=== PATIENT | female | born 1980 | race Two or more races ===

== ENCOUNTER 2025-01-26 05:57 | Day surgery (SDC) | payer OTHER, SELFPAY ==
[2025-01-24 11:48] VITALS: BMI 27.3
--- NOTE | 2025-01-25 09:59 | HO.ANESPROP2 ---
Documented by User: Lori Dutta NP 01/25/25 09:59 HPI - Anesthesia Eval Consult details Narrative: 44yo F for Right Wide Local Excision Giant Lipoma Right Mid Back/flank PMFSH Active Problems Active Problems: All Active Problems Lipomatosis gigantea (Acute) Past Medical History Medical History History of endometrial biopsy Dyspareunia, female Chronic tension headaches Depression Abnormal vaginal Pap smear Abnormal uterine bleeding (AUB) Nexplanon in place Family History Family History Maternal Grandmother Diabetes mellitus Mother Depression Social History Social History Alcohol intake: current Alcohol intake frequency: does not drink Patient Tobacco Use Status: Current someday Tobacco user Have you been hit, kicked, punched, or otherwise hurt by someone within the past year? If so, by whom?: No Are you DNR?: No Advance Directives: No Advance Directives Information Provided: Yes Sexual orientation: Straight/Heterosexual Gender identity: Female Meds Allergies Allergy/AdvReac Type Severity Reaction Status Date / Time No Known Allergies Allergy Verified 01/25/25 09:05 Home Medications ?Medication ?Instructions ?Recorded ?Confirmed ?Last Taken ?Type sertraline 50 mg tablet 50 mg PO QAM 01/24/25 01/24/25 01/24/25 History Exam Height,Weight and Vital Signs: Height 5 ft 3 in Weight 69.853 kg Assessment and Plan Assessment Anesthesia Assessment: Chart Reviewed Documented by User: Nayana Lomas MD 01/26/25 07:30 PMFSH Past Medical History Medical History History of endometrial biopsy Dyspareunia, female Chronic tension headaches Depression Abnormal vaginal Pap smear Abnormal uterine bleeding (AUB) Nexplanon in place Family History Family History Maternal Grandmother Diabetes mellitus Mother Depression Family history of problems with anesthesia: No Surgical History History of Problems with Anesthesia: No Social History Social History Alcohol intake: current Alcohol intake frequency: does not drink Patient Tobacco Use Status: Current someday Tobacco user Have you been hit, kicked, punched, or otherwise hurt by someone within the past year? If so, by whom?: No Are you DNR?: No Advance Directives: No Advance Directives Information Provided: Yes Sexual orientation: Straight/Heterosexual Gender identity: Female Meds Allergies Allergy/AdvReac Type Severity Reaction Status Date / Time No Known Allergies Allergy Verified 01/25/25 09:05 Home Medications ?Medication ?Instructions ?Recorded ?Confirmed ?Last Taken ?Type sertraline 50 mg tablet 50 mg PO QAM 01/24/25 01/24/25 01/24/25 History Exam Height,Weight and Vital Signs: Height 5 ft 3 in Weight 69.853 kg Vital Signs Temp Pulse Resp BP Pulse Ox O2 Del Method 01/26/25 06:14 97.6 F 78 18 112/68 98 Room Air Pertinent Lab Results Pertinent Lab Results: Lab Results 01/26/25 Range/Units 06:15 Urine Test NEGATIVE (NEGATIVE) Airway Mallampati Class: II TM Dist: >3cm Neck ROM: Full Loose/Missing/Broken Teeth: Yes (Missing 1 tooth top and bottom left. Denies broken or loose teeth) Heart: RRR Lungs: CTAB Assessment and Plan Assessment Anesthesia Assessment: Anesthesia Plan Discussed and Chart Reviewed Final Anesthetic Review Family History of Problems with Anesthesia: No History of Problems with Anesthesia: No NPO: Yes ASA Class: II Final Preanesthetic Review: No Changes in Pt Med Stat, Meds/Allgs Chart Reviewed, Consent Obtained/Reviewed and Anes Risks/Benef Reviewed Patient Risk: Low Procedure Risk: Low Assessment/Block/Sedation in SS: Assess/Block/Sedation-SS Anesthetic Plan Anesthetic Plan: TIVA Disposition: Standard PACU
--- NOTE | 2025-01-25 11:34 | P.HPSUR_ITS ---
Pre-Procedural Eval Section A - 24 Hr Update-Section A only Date of Service: 01/26/25 The patient is an INPATIENT: No Changes since office visit: No Cold of Flu in the past 2 weeks, No New Medical Problems, No Changes in Medication and No Patient answered all questions Section B - Complete if H&P > 30 days Chief Complaint: Lipomatosis, not elsewhere classified Allergies: Allergies Allergy/AdvReac Type Severity Reaction Status Date / Time No Known Allergies Allergy Verified 01/25/25 09:05 Review of Systems Sugical H&P ROS: Negative: Constitution, Cardiovascular, Respiratory, Neurological, Psychiatric, Hem-Onc, Allergic/Immunologic, Gastrointestinal, Genitourinary, Musculoskeletal, Integumentary, Endocrine and Eyes/Ears/Nos e/Throat Exam Surgical H&P Exam: Normal: HEENT, Normal: Heart, Normal: Lungs, Normal: Extremities, Normal: Abdomen, Normal: Skin and Normal: Neurological Plan I have reviewed the history and physical and performed a pertinent physical examination on my patient. No changes have occurred unless specified. Time Spent With Patient Time: Total time managing care of this patient today ____ minutes.
[2025-01-26 06:14] VITALS: BP 112/68; PULSE 78; RESP 18; TEMP 36.4; O2SAT 98; BMI 27.5
[2025-01-26 06:28] LABS: UPreg QC Valid YES; Urine Pregnancy NEGATIVE (NEGATIVE)
[2025-01-26] MEDS: Lactated Ringers 1,000 ML 100 ML IVCONT (06:44)
--- NOTE | 2025-01-26 08:05 | P.OP_ITS ---
Operative Note Operative Note Date of Service: 01/26/25 Narrative: Preoperative diagnosis: [] Large symptomatic right flank lipoma Postop diagnosis: [] The same Procedure [] wide local excision large right flank lipoma Surgeon: [] Gabriel Transfer Station Attendant: [] Jaqueline Type of Anesthesia: [] Mac surgery: [] Final specimen measured approximately 9 x 6 cm consistent with a large lipoma Findings: [] Patient with the operating room, placed up the sponges noted adequate level of mac anesthesia was induced, patient was placed left lateral decubitus position. Right flank was prepped and draped in usual sterile fashion a transverse incision over the mass in question, this was carried down through skin, subcutaneous tissue, with superior and inferior skin flaps were developed and circumferential dissection inhalation of multilobular lipoma with final dimensions as described above was other than fully performed. Specimen sent to pathology. The wound Was irrigated, secured for hemostasis, and closed using interrupted inverted dermal 3-0 Vicryl sutures followed by Steri-Strips and sterile dressings were applied. Wound was infiltrated at the beginning and at the end the case with 0.5% Marcaine/1% lidocaine Sponge, needle, instrument counts were reported to be correct. Patient tolerated the procedure well in emergency anesthesia stable condition. EBL minimal
[2025-01-26 08:24] VITALS: BP 106/50; PULSE 73; RESP 16; TEMP 36.4; O2SAT 98
[2025-01-26 08:29] VITALS: BP 136/86; PULSE 76; RESP 16; O2SAT 100
[2025-01-26 08:34] VITALS: PULSE 70; RESP 16; O2SAT 100
[2025-01-26 08:40] VITALS: BP 129/82; PULSE 71; RESP 16; O2SAT 100
[2025-01-26 08:55] VITALS: BP 123/82; PULSE 69; RESP 16; TEMP 36.3; O2SAT 100
== END 2025-01-26 09:22 | disposition home or self-care (01) ==
PROVIDERS: Nurse Practitioner; PCP Internal Medicine; Visit Provider Surgery
PROC: (CPT 21931; principal; 2025-01-26 07:30)
DX: D17.1 Benign lipomatous neoplasm of skin and subcutaneous tissue of trunk (principal); G44.209 Tension-type headache, unspecified, not intractable; N94.10 Unspecified dyspareunia; F32.A Depression, unspecified; Z79.899 Other long term (current) drug therapy; Z97.5 Presence of (intrauterine) contraceptive device; F17.210 Nicotine dependence, cigarettes, uncomplicated
CPT/HCPCS: 21931; 81025; 88304; J0131; J0690; J2003; J2250; J2405; J2704; J2795; J3010

== ENCOUNTER → 2025-01-26 05:57 | Outpatient (BNV) | payer OTHER, SELFPAY | PROVIDERS: PCP Internal Medicine; Visit Provider Surgery | DX: D17.1 Benign lipomatous neoplasm of skin and subcutaneous tissue of trunk (principal) | CPT/HCPCS: 21931 ==

== ENCOUNTER 2025-02-06 11:14 | Outpatient (AMB) | payer OTHER, SELFPAY ==
--- NOTE | 2025-02-06 11:15 | MHC.OFFVIS ---
Intake Visit Reasons: S/P WLE giant lipoma Rt. mid back/flank Intake Note: Patient here s/p wide local excision large right flank lipoma. Reports incision healing well. Patient c/o: tenderness. Denies oozing. WLE: 01-26-2025 Technology Sales Specialist Required: No Accompanied by: Self / Same As Patient Allergies No Known Allergies Allergy (Verified 02/06/25 11:16) HPI Comments Details: Patient was for follow-up status post right flank lipoma excision. She is doing well. Tolerating a diet. Number good bowel habits. Minimal incisional discomfort. Slowly increasing her activity level. Pathology is benign. [facility] Medical History (Updated 01/30/25 @ 10:55 by Brenda Vivas) History of endometrial biopsy Dyspareunia, female Chronic tension headaches Depression Abnormal vaginal Pap smear Nexplanon in place Abnormal uterine bleeding (AUB) Family History (System 01/30/25 @ 10:55 by Brenda Vivas) Maternal Grandmother Diabetes mellitus Mother Depression Social History (System 01/30/25 @ 10:55 by Brenda Vivas) Alcohol intake: current Alcohol intake frequency: does not drink Patient Tobacco Use Status: Current someday Tobacco user Sexual orientation: Straight/Heterosexual Gender identity: Female Female Reproductive History Menstrual Age of Menarche: 17 Physical Exam Chest Other: Incision clean dry and intact healing well Assessment & Plan Assessment & Plan (1) Status post excision of lipoma: Code(s): Z98.890 - Other specified postprocedural states; Z86.018 - Personal history of other benign neoplasm Category: Medical Plan Patient was been given local instructions and will otherwise follow-up p.r.n.. Avoiding strenuous activities next few weeks time. All questions answered. Medications: Discontinued oxycodone Partial Fill upon patient request. Discontinued Reason: Patient no longer taking 5 mg PO Q4H PRN 24 tabs 0RF pain (scale score 7-10) Coding Level of Care Code Global (15497) Diagnoses Status post excision of lipoma Z98.890; Z86.018
== END 2025-02-06 11:32 | disposition home or self-care (01) ==
LOC: HO.HGS 11:14
PROVIDERS: PCP Internal Medicine; Visit Provider Surgery
DX: Z98.890 Other specified postprocedural states (principal); Z86.018 Personal history of other benign neoplasm
CPT/HCPCS: 99024